=== PATIENT | male | born 1995 | race Caucasian/White ===

== ENCOUNTER 2019-04-21 09:46 | Emergency (ER) | payer SELFPAY ==
[~2019-04-21] VITALS: Wt 100.0 kg
[~2019-04-21 09:46] MED LIST: IBUP-1542 PO
[2019-04-21 09:52] VITALS: BP 137/90; PULSE 87; RESP 18
[2019-04-21] MEDS ORDERED: KETOROLAC 30 MG INJ IM STA (11:46)
== END 2019-04-21 13:38 | disposition home or self-care (01) ==
LOC: FTE 09:46
DX: R07.81 Pleurodynia (principal)
CPT/HCPCS: 71100; 96372; 99284; J1885